=== PATIENT | female | born 1995 | race Caucasian/White ===

== ENCOUNTER 2022-06-13 09:13 | Emergency (ER) | payer OTHER ==
[2022-06-13 10:04] LABS: PTT,PARTIAL THROMBOPLSTIN TIME 20.9 SEC (20.5-30.9)
[2022-06-13 10:06] LABS: CHLORIDE,CL 107 mmol/L (98-107); SODIUM,NA 142 mmol/L (136-145)
[2022-06-13 10:18] LABS: ANION GAP 11.7 mmol/L (5-15); ESTIMATED GFR 121 mL/min (>=60)
== END 2022-06-13 10:48 | disposition home or self-care (01) ==
LOC: VM.ED 09:13
DX: O72.2 Delayed and secondary postpartum hemorrhage (principal); Z98.890 Other specified postprocedural states
CPT/HCPCS: 36415; 80053; 81025; 85025; 85610; 85730; 99284

== ENCOUNTER 2023-06-14 11:29 | Emergency (ER) | payer MEDICAID, OTHER | END 2023-06-14 11:44 | disposition home or self-care (01) | LOC: VM.ED 11:29 | DX: J32.9 Chronic sinusitis, unspecified (principal); Z86.16 Personal history of COVID-19; Z98.890 Other specified postprocedural states | CPT/HCPCS: 99283 ==

== ENCOUNTER 2023-07-26 09:24 | Emergency (ER) | payer MEDICAID | END 2023-07-26 10:01 | disposition home or self-care (01) | LOC: VM.ED 09:24 | DX: O99.512 Diseases of the respiratory system complicating pregnancy, second trimester (principal); J30.9 Allergic rhinitis, unspecified; Z3A.00 Weeks of gestation of pregnancy not specified; Z86.16 Personal history of COVID-19 | CPT/HCPCS: 99283 ==

== ENCOUNTER 2023-11-01 15:02 | Emergency (ER) | payer MEDICAID | END 2023-11-01 15:53 | disposition home or self-care (01) | LOC: VM.ED 15:02 | DX: O99.513 Diseases of the respiratory system complicating pregnancy, third trimester (principal); J40 Bronchitis, not specified as acute or chronic; J32.9 Chronic sinusitis, unspecified; Z86.16 Personal history of COVID-19; Z3A.29 29 weeks gestation of pregnancy; Z79.899 Other long term (current) drug therapy | CPT/HCPCS: 99283; 99284 ==

== ENCOUNTER 2024-12-10 14:37 | Emergency (ER) | payer OTHER, MEDICAID | END 2024-12-10 15:10 | disposition home or self-care (01) | LOC: VM.ED 14:37 | DX: S16.1XXA Strain of muscle, fascia and tendon at neck level, initial encounter (principal); Z79.899 Other long term (current) drug therapy; Z86.16 Personal history of COVID-19; V49.49XA Driver injured in collision with other motor vehicles in traffic accident, initial encounter; Y93.89 Activity, other specified | CPT/HCPCS: 99283 ==

== ENCOUNTER 2025-01-07 18:03 | Emergency (ER) | payer MEDICAID | END 2025-01-07 19:09 | disposition home or self-care (01) | LOC: VM.ED 18:03 | DX: N76.0 Acute vaginitis (principal); Z79.899 Other long term (current) drug therapy; Z86.16 Personal history of COVID-19 | CPT/HCPCS: 87210; 99282; 99283 ==

== ENCOUNTER 2025-02-07 14:00 | Emergency (ER) | payer SELFPAY | END 2025-02-07 14:35 | disposition home or self-care (01) | LOC: VM.ED 14:00 | DX: O98.811 Other maternal infectious and parasitic diseases complicating pregnancy, first trimester (principal); B37.0 Candidal stomatitis; Z3A.01 Less than 8 weeks gestation of pregnancy; Z86.16 Personal history of COVID-19 | CPT/HCPCS: 99282; 99283 ==

== ENCOUNTER 2025-02-22 12:00 | Emergency (ER) | payer SELFPAY ==
[2025-02-22 12:16] LABS: APPEARANCE,URINE TURBID (CLEAR); GLUCOSE,URINE NEGATIVE (NEGATIVE); OCCULT BLOOD,URINE LARGE (NEGATIVE)
[2025-02-22 12:23] LABS: SQUAMOUS EPITHELIAL CELLS,UR MODERATE /HPF (NOT SEEN)
== END 2025-02-22 12:33 | disposition home or self-care (01) ==
LOC: VM.ED 12:00
DX: N30.90 Cystitis, unspecified without hematuria (principal); Z86.16 Personal history of COVID-19; Z79.899 Other long term (current) drug therapy
CPT/HCPCS: 81001; 87086; 87088; 87186; 99283